=== PATIENT | male | born 1930 | race Caucasian/White ===

== ENCOUNTER 2017-01-15 15:39 | Inpatient (IN) | payer MEDICARE, OTHER ==
[~2017-01-15] VITALS: Ht 185.4 cm; Wt 77.6 kg
--- NOTE | 2017-01-15 17:00 | NUR ---
RECEIVED FROM [facility] WITH AND DAUGHTER VIA PRIVATE CAR. DX: DEMENTIA WITH BEHAVIORS. HAS HAD INCREASED VERBAL AGGRESSION, AGITATION, AND CONFUSION. HAS HAD MEDICATION CHANGES WITH NO IMPROVEMENT. AMBULATES WITH A CANE. SENT HIS CANE HOME WITH DAUGHTER AND GAVE HIM A WALKER. HE IS AGITATED ABOUT BEING LEFT HERE. WILL MONITOR FOR CAHANGES. CONTINUE PLAN OF CARE.
[2017-01-15] MEDS ORDERED: ARICEPT5 MG PO (17:13)
[2017-01-15] MEDS ORDERED: KLONOPIN0.5 MG PO (17:14)
[2017-01-15] MEDS ORDERED: BAYER CHEWABLE81 MG PO (17:14)
[2017-01-15] MEDS ORDERED: CORDARONE200 MG PO (17:15)
[2017-01-15] MEDS ORDERED: KEFLEX250 MG PO (17:15)
[2017-01-15] MEDS ORDERED: HYDROCHLOROTH12.5 M1 PO (17:18)
[2017-01-15] MEDS ORDERED: NAMENDA10 MG PO (17:19)
[2017-01-15] MEDS ORDERED: PROSCAR5 MG PO (17:20)
[2017-01-15] MEDS ORDERED: NYSTATIN1 PWD TOPICAL (17:20)
[2017-01-15] MEDS ORDERED: SYNTHROID100 MCG PO (17:22)
[2017-01-15] MEDS ORDERED: SYNTHROID150 MCG PO (17:23)
[2017-01-15] MEDS ORDERED: ACETAMINOPHEN325 MG PO (17:24)
[2017-01-15] MEDS ORDERED: VITAMIN D31000 UNIT PO (17:25)
[2017-01-15 17:32] VITALS: BP 167/91
[2017-01-15 18:46] LABS: BASOPHILS 0.4 % (0-2); EOSINOPHILS 1.8 % (0-7); HEMATOCRIT 48.1 % (42.0-54.0); HEMOGLOBIN 15.7 g/dL (13.5-17.5); IMMATURE GRANULOCYTES 0.3 % (0-5); LYMPHOCYTES 27.8 % (15-50); MCHC 32.6 g/dL (31.0-37.0); MCV 91.8 fL (80.0-100.0); MEAN PLATELET VOLUME 9.6 fL (7.4-10.4); MONOCYTES 10.3 % (2-11); NEUTROPHILS 59.4 % (40-80); PLATELET COUNT 203 10x3/uL (130-400); RBC 5.24 10x6/uL (4.20-6.10); RDW 14.9 % (11.5-14.5); WBC 9.6 10x3/uL (4.8-10.8)
[2017-01-15 19:06] LABS: HEMOGLOBIN A1C 5.7 % (4.8-6.0)
[2017-01-15 19:20] LABS: ALBUMIN 3.3 g/dL (3.4-5.0); ANION GAP 11.4 mmol/L (8-16); BILIRUBIN - TOTAL 0.48 mg/dL (0.2-1.3); CALCIUM 8.1 mg/dL (8.5-10.1); CARBON DIOXIDE 28.9 mmol/L (21.0-32.0); CHOL - HDL RATIO 3.2 ratio (2.3-4.9); CREATININE - SERUM 1.7 mg/dL (0.6-1.3); LDL-HDL RATIO 1.9 ratio (1.5-3.5); POTASSIUM - SERUM 4.3 mmol/L (3.5-5.1); PROTEIN - SERUM 6.8 g/dL (6.4-8.2); THYROID STIMULATING HORMONE 3.22 uIU/mL (0.36-3.74)
[2017-01-15 19:45] VITALS: BP 156/86
--- NOTE | 2017-01-16 01:19 | NUR ---
RECEIVED IN BEDROOM. LAYING IN BED EYES OPEN. CALM AND COOPERATIVE WITH CARE AND ASSESSMENTS. MILD AGITATION RELATED TO HAVING TO STAY AT LONG-TERM. REDIRECTED AND REORIENTED. RESTING EYES CLOSED AT THIS TIME. CONTINUE PLAN OF CARE
[2017-01-16 05:38] VITALS: BMI 29.0
[2017-01-16 07:57] VITALS: BP 143/80
--- NOTE | 2017-01-16 10:35 | NUR ---
PT CONFUSED TO SITUATION/PLACE. PT COMPLIANT WITH MEDICATIONS. PT THREATENING TO HURT HIS AT THIS TIME. REORIENTED TO PLACE AND SITUATION. [facility].
[2017-01-16 13:06] VITALS: BMI 29.0
--- NOTE | 2017-01-16 16:18 | NUR ---
SW WAS DISCUSSING CARE WITH PT AND HE STATED HE WANTED SW TO RELAY A MESSAGE TO . HE REPORTED IF SHE DOESN'T COME AND PICK HIM UP HE IS GOING TO KILL HER AND HIMSELF. SW REDIRECTED AND DE ESCALATED PT.
[2017-01-16 19:26] VITALS: BP 140/80
--- NOTE | 2017-01-16 20:10 | NUR ---
RECEIVED IN DINING AREA. WALKING ABOUT. WANTING TO GO TO BED. ASSIST TO BEDROOM AND GIVE PM MEDS. CONFUSED, CALM AND COOPERATIVE WITH CARE AND ASSESSMENTS. NO SIGNS OF AGGRESSION. SITTING ON BEDSIDE. CONTINUE PLAN OF CARE
[2017-01-17 07:26] LABS: RAPID PLASMA REAGIN Non Reactive (Non Reactive); VITAMIN D 25 HYDROXY 29.1 ng/mL (30.0-100.0)
[2017-01-17 08:35] VITALS: BP 127/74
[2017-01-17 09:33] VITALS: Ht 185.4 cm; Wt 77.6 kg
--- NOTE | 2017-01-17 12:35 | PSY ---
PATIENT NAME:EARLENE DANIEL MEDICAL RECORD: [id number] : [birth year] LOCATION:[facility] ADMISSION DATE: 01/15/17 ACCOUNT: [id number] PSYCHIATRIC EVALUATION DATE OF EVALUATION: 01/16/17 Psychiatric Evaluation IDENTIFYING DATA: The patient is 86 years old and he is admitted to the hospital on a voluntary basis. CHIEF COMPLAINT: Agitation. HISTORY OF PRESENT ILLNESS: The patient apparently is living at the [facility]. He has a known history of dementia. There were some medication changes that were made recently and since then, he has had a worsening of his confusion and behavior. It is not clear if that was related to the changes in the medication, it just simply time to it. At any rate, he has no short term memory. He has been very restless and verbally aggressive and threatening toward his family and caregivers. The patient emphatically denies this and will not cooperate with me fully. He keeps telling me his address and that I need to get a hold of his to come and get him. When it is explained that he is in the hospital to be evaluated for memory loss and that the evaluation is incomplete, he is fine and accepts it, but then the very next question causes him to go back to where he was before, asking that someone call his to come and get him. After multiple rounds of explaining the situation and accepting it, and then immediately forgetting and asking me to call his , frankly, it was just not feasible to get any useful information from him. Records indicate, as I mentioned, that he was quite agitated. PAST MEDICAL HISTORY: The patient does have a history of hypothyroidism and hypertension. He also has a history of cardiac arrhythmia and benign prostatic hypertrophy. PAST PSYCHIATRIC HISTORY: Significant for the history of dementia. It is unknown as to whether or not he has a history of substance abuse. ALLERGIES: DULCE MARIA INHIBITORS, PENICILLIN AND SULFUR. CURRENT MEDICATIONS: Include Proscar, Keflex, Cordarone, Synthroid, vitamin D and hydrochlorothiazide. SOCIAL HISTORY: The patient is and has adult children who are involved with his care. 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 MENTAL STATUS EXAMINATION: The patient is awake, alert and oriented to person, place and somewhat to time and situation. His mood is flat. His affect is constricted. Thought processes are circumstantial. Memory, concentration and abstraction abilities are moderately impaired and he denies any active intent to harm himself or others as well as overt psychotic symptoms. ASSETS: Supportive family members. LIABILITIES: Limited insight. DIAGNOSTIC IMPRESSION: AXIS I: Senile dementia of the Alzheimer's type with behavioral disturbances. AXIS II: None. AXIS III: Hypertension, hypothyroidism, cardiac arrhythmia and benign prostatic hypertrophy. AXIS IV: Moderate stressors. AXIS V: Global assessment of functioning is 30. PLAN: At this time, the patient is admitted to the hospital for a comprehensive medical, psychological and social evaluation. He will be treated with both mood stabilizing and memory enhancing medications. His long-term prognosis is guarded. TRANSINT:[id number] Voice Confirmation ID: [id number] DOCUMENT ID: [id number] BRANDI REYES MD at 1235 CC: [id number] DICTATION DATE: 01/16/17 1412 ACCOUNTANCY PROFESSOR: 01/16/17 1547 [facility] [address] [place] [address]
--- NOTE | 2017-01-17 17:41 | NUR ---
B) Alert, exit-seeking, angry, agitated, med compliant, re-directs well. I) Meds admin per orders. Group therapy provided. R) Deric meds well with no s/s adverse reaction. No aggression noted. P) Cont plan of care including meds and group therapy.
[2017-01-17 19:30] VITALS: BP 128/81
--- NOTE | 2017-01-18 00:40 | NUR ---
B) Patient alert and oriented to self and being in a hospital, restless, demanding and wanting to leave, R) Administered scheduled medications, redirected as needed, monitored for safety, R) Medication compliant, verbally aggressive P) Continue plan of care.
[2017-01-18 08:48] VITALS: BP 121/83
[2017-01-18 08:52] VITALS: BP 131/76
--- NOTE | 2017-01-18 10:26 | PN ---
PATIENT:EARLENE DANIEL MEDICAL RECORD: [id number] LOCATION:[facility] ADMISSION DATE: 01/15/17 PROGRESS NOTE DATE OF SERVICE: 01/17/2017 SUBJECTIVE: The patient states "let's get out of here." OBJECTIVE: The patient continues to be restless and anxious. He has been somewhat difficult to redirect. Yesterday, he made threats against his . He has not made similar threats today, but continues to be irritable and exhibits some brittle affect. On exam, mood is indeed irritable and somewhat angry. Affect is shallow and brittle. Speech is overly loud. Content of thought is positive for expressions of hostility toward staff members. Sensorium is unchanged. ASSESSMENT: Alzheimer dementia with behavioral disturbance. PLAN: 1. We will advance Aricept to 10 mg h.s. 2. Add Seroquel 50 mg b.i.d. 3. Continue other medications and supportive therapy. TRANSINT:[id number] Voice Confirmation ID: [id number] DOCUMENT ID: [id number] AGUSTÍN KENT III, MD at 1026 CC: [id number] DICTATION DATE: 01/17/17 1058 APPLE PICKING SUPERVISOR: 01/17/17 1334 ADM IN [facility] [address] [place] [address]
--- NOTE | 2017-01-18 14:00 | NUR ---
AWAKE AND ORIENTED TO SELF AND NAME OF HOSPITAL. HE KEEPS MAKING REMARKS, "I HAVE GOT TO GET OUT OF THIS PLACE.", THREATENING COMMENTS TOWARDS HIS . CALM AND COOPERATIVE WITH CARE AND ASSESSMENT. AMBULATES WITH WALKER. HE CONTINUES TO BE VERBALLY AGGRESSIVE WITH STAFF, AND DEMANDING WHAT HE WANTS. ADMINISTERED PRESCRIBED MEDICATIONS. COMPLIANT WITH MEDS. REDIRECT AND REORIENT NEEDED. FALL PRECAUTIONS MAINTAINED. CONTINUE PLAN OF CARE.
--- NOTE | 2017-01-18 14:33 | NUR ---
PT WAS SITTING IN THE DINING ROOM AND STATED SW NEEDED TO CALL HIS AND TELL HER IF HE DOESN'T GET OUT BY HER PICKING HIM UP HE WILL KILL HER AND HIMSELF. SW REPORTED TO PT'S , JELLY, WHEN SHE CALLED FOR AN UPDATE. SHE STATED SHE WOULD NOT COME DUE TO HIS STATEMENT. SW STATED THAT WAS PROBABLY FOR THE BEST. TRINITY DE [facility] UPDATED DTR ON PT'S BEHAVIORS AND MEDICATION REGIMEN.
--- NOTE | 2017-01-18 17:00 | NUR ---
PATIENT IS GETTING MORE AGITATED AND UPSET ABOUT BEING IN THIS PLACE. HAS BEEN EXIT-SEEKING TO GET OUT OF HERE.
[2017-01-18 19:23] VITALS: BP 133/77
--- NOTE | 2017-01-19 00:59 | NUR ---
B) Patient alert and oriented to self, restless and wanting to go home, very confused and impatient, I) Administerd scheduled medications, monitored for falls and safety, R) Medication compliant, resting quietly now, P) Continue plan of care.
--- NOTE | 2017-01-19 07:34 | NUR ---
B) PATIENT IS AWAKE AND ALERT, HE HAS BEEN AMBULATING INDEPENDENTLY, BUT HE IS SITTING AT THE DESK AND HE IS SLEEPING IN HIS CHAIR. WHEN ASKED WHAT HIS NAME IS, HE SAYS "DR. DANIEL" PATIENT KNOWS HIS NAME AND THE PLACE. HE IS NOT AWARE OF THE SITUATION THAT BROUGHT HIM HERE. I) PROVIDE PRESCRIBED MEDS. R) PATIENT IS CALM AND HAS NOT SHOWN ANY AGGRESSION THIS AM. P) CONTINUE POC.
[2017-01-19 08:13] VITALS: BP 153/77
[2017-01-19 20:44] VITALS: BP 136/74
--- NOTE | 2017-01-20 01:43 | NUR ---
B) Patient alert and oriented to self, wanting to go home, restless and exit seeking, I) Administered schduled medications, redirected as needed, R) Medication compliant, P) Continue plan of care.
[2017-01-20 08:07] VITALS: BP 409/60
--- NOTE | 2017-01-20 08:29 | PN ---
PATIENT:EARLENE DANIEL MEDICAL RECORD: [id number] LOCATION:[facility] ADMISSION DATE: 01/15/17 PROGRESS NOTE DATE OF SERVICE: 01/19/2017 SUBJECTIVE: The patient's case was discussed with staff. He has no new complaint. OBJECTIVE: The patient has very poor insight about his situation. He is tolerating his medicines well. Eye contact is poor. ASSESSMENT: No change in diagnoses. PLAN: Brief supportive and educational interventions were made. Alf prognosis is guarded. TRANSINT:[id number] Voice Confirmation ID: [id number] DOCUMENT ID: [id number] BRANDI REYES MD at 0829 CC: [id number] DICTATION DATE: 01/19/171709 SANFORIZING MACHINE OPERATOR: 01/19/178 ADM IN [place] [address] [place] [address]
--- NOTE | 2017-01-20 11:42 | NUR ---
B) PATIENT IS CONFUSED, HE ASKS THE SAME QUESTION OVER AND OVER, HE HAS ASKED STAFF TO CALL HIS TO PICK HIM UP. PATIENT AMBULATES INDEPENDENTLY. I) PROVIDE PRESCRIBED MEDS. R) PATIENT IS COMPLIANT WITH MEDS. P) CONTINUE POC.
--- NOTE | 2017-01-20 15:30 | NUR ---
PATIENT IS THREATENING TO DIVORCE HIS IF SHE DOESN'T COME UP HERE TO PICK HIM UP. PATIENT'S DAUGHTER SAID SHE WAS COMING TO VISIT TODAY, BUT SHE WOULD KEEP MOTHER AWAY SINCE HE IS MAKING THREATS.
--- NOTE | 2017-01-20 15:31 | NUR ---
PATIENT'S DAUGHTER WONDERS IF THE PATIENT MAY NEED AN ANTIDEPRESSANT SINCE HE WAS TAKEN OFF OF WELLBUTRIN ABRUPTLY. SHE FEELS HE MAY BE GOING THROUGH A DRUG WITHDRAWAL. LET HER KNOW WE WILL SHARE HER CONCERNS WITH THE PHYSICIANS.
[2017-01-20 19:00] VITALS: BP 130/74
--- NOTE | 2017-01-21 02:06 | NUR ---
B) Patient alert and oriented to self, patient said if he ever gets out of here he is not coming back, impatient and restless at times, poor short term memory, I) Administered schduled medications, redirected as needed, R) Medication compliant, easy to redirect, P) Continue plan of care.
[2017-01-21 07:00] VITALS: BP 147/82
--- NOTE | 2017-01-21 12:30 | NUR ---
B) PATIENT IS ALERT AND AWAKE, BUT CONFUSED REASON FOR BEING HERE AND DATE. HE IS AMBULATORY WITH WALKER. HE REPEATS STATEMENTS CONSTANTLY, ASKING TO CALL HIS NUMEROUS TIMES. NO AGGRESION NOTED. I) ADMINISTERED PRESCRIBED MEDICATIONS. VSS. R) COMPLIANT WITH MEDICATIONS AND UNIT MILIEU. REORIENT AND REDIRECT PRN. P) MAINTAIN FALL PRECAUTIONS AND CONTINUE PLAN OF CARE.
[2017-01-21 19:30] VITALS: BP 135/57
--- NOTE | 2017-01-21 20:27 | NUR ---
RECEIVED IN BEDROOM. VERY NEGATIVE THIS PM. STATED THAT HE WOULD JUST LIKE TO GO TO SLEEP AND JUST NOT WAKE UP. CALM AND COOPERATIVE WITH CARE AND ASSESSMENTS. REDIRECT AND REORIENT. ENCOURAGE TO EXPRESS NEEDS AND FEELINGS. RESTING EYES CLOSED AT THIS TIME. CONITNUE PLAN OF CARE
[2017-01-22 07:00] VITALS: BP 152/84
--- NOTE | 2017-01-22 10:23 | PN ---
PATIENT:EARLENE DANIEL MEDICAL RECORD: [id number] LOCATION:[facility] ADMISSION DATE: 01/15/17 PROGRESS NOTE DATE OF SERVICE: 01/18/2017 SUBJECTIVE: "I'm leaving." OBJECTIVE: The patient continues to have episodes of agitation and aggressiveness. He again has made threats against his . He frequently exit seeks and has to be redirected. On exam, mood is angry and irritable. Affect is very brittle. Speech is terse and overly loud. Content of thought as noted above. Sensorium unchanged. ASSESSMENT: No change in diagnosis. PLAN: 1. Adjust medications as indicated. 2. Continue supportive therapy. TRANSINT:[id number] Voice Confirmation ID: [id number] DOCUMENT ID: [id number] AGUSTÍN KENT III, MD at 1023 CC: [id number] DICTATION DATE: 01/18/17 112 CDL SERVICE TECHNICIAN: 01/18/17 1335 ADM IN [place] [id number] [place] [id number]
--- NOTE | 2017-01-22 13:31 | PN ---
PATIENT:EARLENE DANIEL MEDICAL RECORD: [id number] LOCATION:[facility] ADMISSION DATE: 01/15/17 PROGRESS NOTE DATE OF SERVICE: 01/20/2017 SUBJECTIVE: The patient's case was discussed with staff. He has no new complaint. OBJECTIVE: The patient has no active thoughts of harming himself or others. He is in good behavioral control, although he has been somewhat irritated at times. ASSESSMENT: No change in diagnosis. PLAN: Current medicines and therapies have been reviewed and will be maintained. Long-term prognosis is guarded. TRANSINT:[id number] Voice Confirmation ID: [id number] DOCUMENT ID: [id number] BRANDI REYES MD at 1331 CC: [id number] DICTATION DATE: 01/20/17 0839 ORIENTATION AND MOBILITY INSTRUCTOR: 01/20/17 1627 ADM IN [place] [id number] [place] [id number]
--- NOTE | 2017-01-22 14:00 | NUR ---
PATIENT IS ALERT THIS AM. ADMINISTERED PRESCRIBED MEDICATIONS. COMPLIANT WITH TAKING MEDS. ASSESSMENT COMPLETED. CONTINUE PLAN OF CARE.
[2017-01-22 20:00] VITALS: BP 131/64; BP 151/82
--- NOTE | 2017-01-22 22:48 | NUR ---
RECEIVED IN BEDROOM. RESTING WITH EYES OPEN. VERY CONFUSED. CALM AND COOPERATIVE WITH CARE AND ASSESSMENTS. NO SIGNS OF AGGRESSION. RESTING IN BED EYES CLOSED. CONTINUE PLAN OF CARE
[2017-01-23 07:00] VITALS: BP 156/82
--- NOTE | 2017-01-23 13:20 | NUR ---
Nutrition Monitoring and Eval: Chart reviewed. Pt is eating 92% meal avg on a regular diet. Meds and labs reviewed. Pt continues at low nutritional risk. RD following.
--- NOTE | 2017-01-23 13:58 | NUR ---
PATIENT IS PLEASANT. TOOK ALL MEDICATION WITHOUT DIFFICULTY. VISITING WITH OTHER RESIDENTS.
[2017-01-23 19:15] VITALS: BP 127/67
--- NOTE | 2017-01-23 19:34 | NUR ---
RECEIVED IN HALLWAY OUTSIDE OF DINING AREA. WALKING TO DDORS WANTING TO GO TO BED. VERY CONFUSES. CALM AND COOPERATIVE WITH CARE AND ASSESSMENTS. REDIRECT AND REORIENT NEEDED. RESTING IN CHAIR AT THIS TIME. CONTINUE PLAN OF CARE
[2017-01-24 08:00] VITALS: BP 131/76
--- NOTE | 2017-01-24 08:28 | NUR ---
PT ALERT EATING BREAKFAST. AM MEDS ADMINISTERED. PT TOOK MEDS WITHOUT DIFFICULTY. PT DENEIS NEEDS. WCTM.
--- NOTE | 2017-01-24 10:05 | PN ---
PATIENT:EARLENE DANIEL MEDICAL RECORD: [id number] LOCATION:[facility] ADMISSION DATE: 01/15/17 PROGRESS NOTE DATE OF SERVICE: 01/23/2017 SUBJECTIVE: No new complaint. OBJECTIVE: The patient is overall better. He is tolerating medications without difficulty. It appears he will be stable enough for transfer back to [facility] in a couple of days. On exam, mood is more or less euthymic. Affect rather reserved. Speech is somewhat terse. Content of thought is negative for overt psychosis. Sensorium unchanged. ASSESSMENT: No change in diagnosis. PLAN: 1. Continue current treatment plan. 2. Anticipate discharge in a couple of days. TRANSINT:[id number] Voice Confirmation ID: [id number] DOCUMENT ID: [id number] AGUSTÍN KENT III, MD at 1005 CC: [id number] DICTATION DATE: 01/23/17 1306 PATIENT ASSESSMENT COORDINATOR: 01/23/17 1617 ADM IN [place] [id number] [place] [id number]
[2017-01-24] MEDS ORDERED: LEXAPRO10 MG PO (11:17)
[2017-01-24] MEDS ORDERED: ARICEPT10 MG PO (11:17)
[2017-01-24] MEDS ORDERED: SEROQUEL25 MG PO (11:18)
[2017-01-24] MEDS ORDERED: VITAMIN B-121000 MCG PO (11:19)
[2017-01-24] MEDS ORDERED: VITAMIN D5000 UNIT PO (11:19)
--- NOTE | 2017-01-24 19:06 | NUR ---
RECEIVED IN DAYROOM. SITTING IN A RECLINER. SOCIALIZING WITH STAFF AND PEERS AT TIMES. CONFUSED. CALM AND COOPERATIVE WITH CARE AND ASSESSMENTS. NO SIGNS OF AGGRESSION. REDIRECT AND REORIENT NEEDED. CONTINUE PLAN OF CARE
[2017-01-24 20:18] VITALS: BP 215/111
--- NOTE | 2017-01-25 04:34 | PN ---
PATIENT:EARLENE DANIEL MEDICAL RECORD: [id number] LOCATION:[facility] ADMISSION DATE: 01/15/17 PROGRESS NOTE DATE OF SERVICE: 01/24/2017 SUBJECTIVE: No new complaint. OBJECTIVE: The patient has continued to tolerate medications well. We do have plans for discharge tomorrow. On exam, mood is slightly anxious. Affect remains shallow. Speech is terse. Content of thought shows no overt psychosis. Sensorium is unchanged. ASSESSMENT: No change in diagnosis. PLAN: 1. Continue current medications. 1. Anticipate discharge tomorrow. TRANSINT:[id number] Voice Confirmation ID: [id number] DOCUMENT ID: [id number] AGUSTÍN KENT III, MD at 0434 CC: [id number] DICTATION DATE: 01/24/17 1136 LEASE PURCHASE TRUCK DRIVER: 01/24/17 1735 ADM IN [place] [id number] [place] [id number]
--- NOTE | 2017-01-25 07:24 | NUR ---
PATIENT IS AWAKE AND ALERT, HE IS CALM, BUT HE HAS CONFUSION, HE KNOWS HIS NAME, BUT NOT PLACE OR TIME. PATIENT AMBULATES WITH A WALKER. I) PROVIDE PRESCRIBED MEDS, REDIRECT NEEDED. R) PATIENT IS COMPLIANT WITH MEDS AND UNIT MILIEU. P) CONTINUE POC.
[2017-01-25 08:00] VITALS: BP 146/95
--- NOTE | 2017-01-25 11:53 | NUR ---
CALLED REPORT TO STEFFANY, CALLED SEROBRI TO [facility] AND REQUESTED DELIVERY TO [facility].
--- NOTE | 2017-01-25 12:30 | NUR ---
PATIENT HAS D/C'D TO [facility], THEIR SLUMBER ROOM ATTENDANT CAME TO PICK HIM UP. ALL BELONGINGS AND PAPERWORK PROVIDED TO SLUMBER ROOM ATTENDANT.
--- NOTE | 2017-01-25 14:55 | NUR ---
PATIENT HAS BEEN D/C'D FROM THE HOSPITAL, BUT JANA IRVIN WANTED THIS NURSE TO CALL HER AND LET HER KNOW THE OFFICIAL DIAGNOSIS AND THE DISCHARGE MEDS. DID RELAY INFORMATION TO PATIENT'S DAUGHTER, SHE SAID SHE AND HER MOTHER ARE VERY THANKFUL FOR LONGTERM STAFF AND ALL THEY DID FOR THEM. SHE ASKED ME TO LET EVERYONE KNOW THEIR APPRECIATION.
--- NOTE | 2017-01-26 05:41 | DS ---
PATIENT:EARLENE DANIEL :[birth year] MEDICAL RECORD: [id number] DISCHARGE SUMMARY ADMISSION DATE: 01/15/17 DISCHARGE DATE: 01/25/17 DATE OF ADMISSION: 01/15/2017 DATE OF DISCHARGE: 01/25/2017 HISTORY OF PRESENT ILLNESS: An 86-year-old white male, who is a resident of [facility]. The patient has a previous history of Alzheimer dementia. The patient had been exhibiting worsening confusion and aggressive behavior. He had been threatening towards both family and care givers. He required a great deal of redirection at the time of admission. For further details, please see previously dictated history. COURSE IN THE HOSPITAL: The patient was seen in consultation by Dr. Marin. Dr. Marin noted the presence of hypertension, severe hearing deficit, hyperlipidemia, cardiac arrhythmias, history of benign prostatic hyperplasia and hypothyroidism. From a medication standpoint, the patient was treated conservatively with Lexapro 10 mg daily and Seroquel 75 mg b.i.d. Initially, the patient was very resistant to care, constantly attempted to elope. However, as the hospitalization progressed, he became much more attractable. The patient did exhibit dysphoria, especially when his visited. Otherwise, the patient was maintained on Synthroid 150 mcg Sunday and Sunday, vitamin B12 and vitamin D supplements, Aricept 10 mg h.s., hydrochlorothiazide 12.5 mg Sunday, Sunday and Sunday, Cordarone 100 mg daily, and Synthroid 100 mcg on Sunday, Sunday, Sunday and . Also, Namenda 10 mg twice a day and Proscar 5 mg h.s. Over course of hospitalization, the patient as mentioned did show gradual improvement. He was discharged back to [facility] in stable condition. FINAL DIAGNOSES: AXIS I: Alzheimer dementia with behavioral disturbance. AXIS II: No diagnosis. AXIS III: Hypertension, hypothyroidism, cardiac arrhythmias, benign prostatic hyperplasia. AXIS IV: Moderate. AXIS V: 36. PLAN: 1. The patient is discharged on current medications. 2. Diet and activities as tolerated. 3. Follow up with primary care physician through the [facility]. TRANSINT:[id number] Voice Confirmation ID: [id number] DOCUMENT ID: [id number] AGUSTÍN KENT III, MD at 0541 CC: [id number] DICTATION DATE: 01/25/17 1232 LOTUS NOTES DEVELOPER: 01/26/17 0252 DIS IN 01/25/17 [facility] [address] [place] [id number]
== END 2017-01-25 13:00 | disposition home or self-care (01) | DRG 57 ==
LOC: D.PSYCH 15:39
PROVIDERS: ADMIT Psychiatry & Neurology Psychiatry
DX: G30.9 Alzheimer's disease, unspecified (principal); F02.81 Dementia in other diseases classified elsewhere, unspecified severity, with behavioral disturbance; I10 Essential (primary) hypertension; E03.9 Hypothyroidism, unspecified; N40.0 Benign prostatic hyperplasia without lower urinary tract symptoms; E78.5 Hyperlipidemia, unspecified; I25.10 Atherosclerotic heart disease of native coronary artery without angina pectoris; Z95.5 Presence of coronary angioplasty implant and graft; R26.9 Unspecified abnormalities of gait and mobility; Z91.81 History of falling; E53.8 Deficiency of other specified B group vitamins; E55.9 Vitamin D deficiency, unspecified

== ENCOUNTER 2017-08-03 12:37 | Inpatient (IN) | payer MEDICARE, OTHER ==
[~2017-08-03] VITALS: Ht 185.4 cm; Wt 92.5 kg
--- NOTE | ~2017-08-03 | DS ---
PATIENT:EARLENE DANIEL :[birth year] MEDICAL RECORD: [id number] DISCHARGE SUMMARY ADMISSION DATE: 08/03/17 DISCHARGE DATE: 08/05/17 DATE OF ADMISSION: 08/03/2017. DATE OF DISCHARGE: 08/05/2017. The patient was admitted with reported syncopal event from [facility]. HOSPITAL COURSE: The patient was admitted to the ER. No signs of syncope, no injury. No falls. He was persistently bradycardic and found to have urinary tract infection, started on empiric antibiotics. Cardiology consulted. Echocardiogram obtained showed ejection fraction 40% to 45%. The patient is alert to person. He is in no acute distress. He declines any further intervention. He wants to be left alone. I had a long discussion with his and daughters. All are in agreement with discharge with hospice. We will continue antibiotics for the acute urinary tract infection. The patient is discharged back to [facility], which he considers home at this time with hospice, discharged in stable condition. Please see chart for further details. Lab results and cultures were obtained and all antibiotics changed to oral antibiotics for completion of therapy for the UTI. TRANSINT:[id number] Voice Confirmation ID: [id number] DOCUMENT ID: [id number] HOANG SHEA DO at 1055 CC: [id number] DICTATION DATE: 08/05/17 1257 CONTRACT PARALEGAL: 08/06/17 0210 DIS IN 08/05/17 [place] [address] [place] [id number]
--- NOTE | ~2017-08-03 | CN ---
PATIENT NAME:EARLENE DANIEL MEDICAL RECORD: [id number] : [birth year] LOCATION:[facility].2126 ADMIT DATE: 08/03/17 ACCOUNT: [id number] CONSULTING PHYSICIAN: ARIELLA THOMAS MD REFERRING PHYSICIAN: HOANG SHEA DO DATE OF CONSULTATION: 08/04/2017 HISTORY OF PRESENT ILLNESS: An 87-year-old gentleman with history of atrial fibrillation, well controlled on very low dose amiodarone 100 mg every day, had an apparent syncopal spell/fall, somewhat of a poor historian. reports he has had more falls as of late. He was found to have urinary tract infection. He is pleasantly demented. History is a little hard to obtain, also noted to have urinary tract infection. PAST MEDICAL HISTORY: Includes: 1. History of dementia. 2. Atrial fibrillation. 3. Dyslipidemia. 4. Hypothyroidism, on replacement. MEDICATIONS: Typically include Synthroid 100 mcg every day, HCTZ 25 every day, Namenda 10 mg b.i.d., Seroquel 75 b.i.d., Lexapro 10 every day, aspirin 81 every day, amiodarone 100 every day, benazepril 10 every day. SOCIAL HISTORY: Lives in [facility]. He is a nonsmoker, has had more of just a general downward physical course as of late. REVIEW OF SYSTEMS: Unobtainable. ALLERGIES: DULCE MARIA INHIBITOR, PENICILLIN, SULFA, STATINS. PHYSICAL EXAMINATION: GENERAL: Diminished gentleman in no acute distress. VITAL SIGNS: Pulse 57, blood pressure 147/74. HEENT: Normocephalic, atraumatic. NECK: No JVD or bruit. HEART: Regular. II/ systolic ejection murmur. LUNGS: Good air excursion. ABDOMEN: Soft, nontender. EXTREMITIES: Pulses 2+ with no edema. DIAGNOSTIC DATA: ECG shows normal sinus rhythm with minor nonspecific ST-T changes. IMPRESSION: Difficult to say if this is a true syncopal episode. At this point in time, we will check echocardiographic study. Continue to monitor as you are doing. Treat urinary tract infection. Further recommendations based on clinical course. TRANSINT:[id number] Voice Confirmation ID: [id number] DOCUMENT ID: [id number] CONSULT REPORT [id number] EARLENE DANIEL ARIELLA THOMAS MD at 0824 CC: [id number] DICTATION DATE: 08/04/17 1138 TICKER INSTALLER: 08/04/17 1301 DIS IN 08/05/17 [place] [id number] [place] [address]
--- NOTE | ~2017-08-03 | EC ---
PATIENT:EARLENE DANIEL DATE OF SERVICE: 08/03/17 SEX: M MEDICAL RECORD: [id number] DATE OF : [birth year] LOCATION:D.M2 D.212 AGE OF PATIENT: 87 ADMISSION DATE: 08/03/17 REFERRING PHYSICIAN: INTERPRETING PHYSICIAN: ARIELLA THOMAS MD ECHOCARDIOGRAM REPORT ECHO CHARGES 4 ECHO COMPLETE CLINICAL DIAGNOSIS: UNSTABLE ANGINA HX OF CAD/CABG ECHOCARDIOGRAPHIC MEASUREMENTS (adult normal given) AC root (d.<3.7cm) 4.4 cm LV Septum d (<1.2 cm> 1.4 cm Valve Excursion 2.2 cm LV Septum (systole) 1.7 cm Left Atria (s.<4.0cm> 4.3 cm LVPW d(<1.2cm) 1.5 cm RV (d.<2.3cm) 3.2 cm LVPW (sytole) 2.1 cm LV diastole(<5.6CM) 6.8 cm MV E-F(>70mm/sec) cm LV systole 4.6 cm LVOT Diameter 1.8 cm MV exc.(>10mm) 1.2 cm Est.ejection fraction (50-75%) % Pericardial Effusion N DOPPLER: LVIT cm/sec A 92.0 cm/sec E 54.0 cm/sec LA cm/sec RVSP 48 mmHg LVOT 121 cm/sec AOP1/2T 544 m/s Asc. Ao 159 cm/sec RVOT 137 cm/sec RA cm/sec PA 185 cm/sec AV Gradient Peak 10.08mmHg AV Mean 5.84 mmHg AV Area 2.0 cm MV Gradient Peak 5.01 mmHg MV Mean 1.51 mmHg MV Area cm COMMENTS: Machine Tool Operator: 2 JEAN DIAL Sander Machine: 3 Dr. Hand TAPE# PACS DATE OF SERVICE: 08/04/2017 Adequate 2D echo, color flow and spectral Doppler, and M-mode. LVH is present. LV internal dimensions are normal. LV is mildly globally hypo with reduced EF. Estimated EF of 40% to 45%. Aortic valve sclerosis without stenosis by Doppler interrogation. Mild AI by color flow imaging. Left atrium is mildly dilated at 4.3 cm. Mitral valve is thickened with mitral annular calcification, only mild MR. Right-sided chamber is normal. Mild TR. ECHOCARDIOGRAM REPORT [id number] EARLENE DANIEL TRANSINT:[id number] Voice Confirmation ID: [id number] DOCUMENT ID: [id number] ARIELLA THOMAS MD at 0824 CC: [id number] DICTATION DATE: 08/04/171419 CLOTH MENDER: 08/04/17 2323 DIS IN 08/05/17 [facility] [address] [place] [id number]
--- NOTE | ~2017-08-03 | EC ---
PATIENT:EARLENE DANIEL DATE OF SERVICE: 08/03/17 SEX: M MEDICAL RECORD: [id number] DATE OF : [birth year] LOCATION:D.M2 D.212 AGE OF PATIENT: 87 ADMISSION DATE: 08/03/17 REFERRING PHYSICIAN: INTERPRETING PHYSICIAN: PLACIDO REVELES MD ECHOCARDIOGRAM REPORT ECHO CHARGES 4 ECHO COMPLETE CLINICAL DIAGNOSIS: UNSTABLE ANGINA HX OF CAD/CABG ECHOCARDIOGRAPHIC MEASUREMENTS (adult normal given) AC root (d.<3.7cm) 4.4 cm LV Septum d (<1.2 cm> 1.4 cm Valve Excursion 2.2 cm LV Septum (systole) 1.7 cm Left Atria (s.<4.0cm> 4.3 cm LVPW d(<1.2cm) 1.5 cm RV (d.<2.3cm) 3.2 cm LVPW (sytole) 2.1 cm LV diastole(<5.6CM) 6.8 cm MV E-F(>70mm/sec) cm LV systole 4.6 cm LVOT Diameter 1.8 cm MV exc.(>10mm) 1.2 cm Est.ejection fraction (50-75%) % Pericardial Effusion N DOPPLER: LVIT cm/sec A 92.0 cm/sec E 54.0 cm/sec LA cm/sec RVSP 48 mmHg LVOT 121 cm/sec AOP1/2T 544 m/s Asc. Ao 159 cm/sec RVOT 137 cm/sec RA cm/sec PA 185 cm/sec AV Gradient Peak 10.08mmHg AV Mean 5.84 mmHg AV Area 2.0 cm MV Gradient Peak 5.01 mmHg MV Mean 1.51 mmHg MV Area cm COMMENTS: Brim Pouncer Machine Operator: Manuel DIAL Swimming Pool Salesperson: 3 Dr. Hand TAPE# PACS DATE OF SERVICE: 08/06/2017 PROCEDURE: Transthoracic echocardiogram. FINDINGS: 1. Left ventricle shown to have left ventricular hypertrophy. There is a distal anterior apical area of dyskinesis and thinning with regional wall motion abnormalities. The basilar segments are more well preserved and actually hypertrophied and there is some dilatation of the left ventricle. The inflow characteristics are consistent with diastolic dysfunction. The overall ejection ECHOCARDIOGRAM REPORT [id number] EARLENE DANIEL fraction is 35% to 40%. 2. The aortic valve is thickened and sclerotic. There is no evidence of significant stenosis. There is evidence of trace to mild aortic insufficiency. 3. The mitral valve has mild mitral regurgitation, is not well visualized structurally. 4. The tricuspid valve has mild tricuspid regurgitation, RVSP of 48 mmHg. 5. The right ventricle is mildly dilated. 6. The right atrium is normal size, normal function. CONCLUSIONS: The patient does have evidence of ischemic cardiomyopathy, ejection fraction of approximately 35% to 40%. Inflow characteristics appear to be suggestive of diastolic dysfunction or elevated left ventricular end-diastolic pressures. TRANSINT:[id number] Voice Confirmation ID: [id number] DOCUMENT ID: [id number] PLACIDO REVELES MD at 1214 CC: [id number] DICTATION DATE: 08/06/17 1206 VELVET WEAVER: 08/06/17 1226 DIS IN 08/05/17 [facility] [address] [place] [address]
--- NOTE | ~2017-08-03 | HP ---
PATIENT: EARLENE DANIEL MEDICAL RECORD: [id number] ACCOUNT: [id number] LOCATION:[address] : [birth year] ADMISSION DATE: 08/03/17 HISTORY AND PHYSICAL EXAMINATION HISTORY OF PRESENT ILLNESS: An 87-year-old male reported had a syncopal event with no observed syncopal event with no injury earlier today and brought in to the Emergency Room. PAST MEDICAL HISTORY: Significant for dementia. Also, the patient is a very limited historian with his dementia. He denies any present symptoms. He is comfortable at supine position at rest. Again, past medical history is significant for dementia, arrhythmia. Depression, difficulties with incontinence of urine. CURRENT MEDICATIONS: Listed as, donepezil, amiodarone. ALLERGIES: LISTED DULCE MARIA INHIBITORS, PENICILLIN, SULFA, STATIN, ZETIA. PHYSICAL EXAMINATION: VITAL SIGNS: The patient is afebrile, blood pressure stable. Heart rate running in the low 40s to low 50s. HEENT: Head is normocephalic, atraumatic. Eyes: Pupils slightly pinpoint. Extraocular muscles are intact and answers appropriately. 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 Ears: Canals patent, TMs are intact. Nose: Nares patent. Throat: No erythema, no exudates. NECK: Supple. No lymphadenopathy. HEART: Bradycardic. LUNGS: Clear to auscultation bilaterally. Breathing is nonlabored. ABDOMEN: Soft, nontender. Bowel sounds all 4 quadrants. EXTREMITIES: Present times 4, no edema. NEUROLOGIC: No appreciable focal deficits other than memory deficits. LABORATORY DATA: Chest x-ray subtle patchy airspace disease, lateral left lung base, likely atelectasis, possible early infiltrate. Lactic acid 0.9. Urinalysis: Yellow, cloudy, concentrated, trace protein, 1+ blood, positive nitrites, 25-50 wbc's, many bacteria. CBC: White count 6.1, hemoglobin 13.9, hematocrit 43.5, platelets 221. Chemistry shows sodium of 140, potassium 3.9, chloride 105, bicarb 24.6, BUN 19, creatinine 1.8. Glucose 113, calcium 8, AST 12, ALT 11, alkaline phosphatase 70. CK 30, troponin less than 0.017. Albumin 2.9. TSH 0.85. Urine and blood cultures are pending. ASSESSMENT AND PLAN: 1. Syncopal episode. CT of the head reported as negative. 2. Bradycardia, obtain EKG and echocardiogram, cardiology consulted. 3. Urinary tract infection, culture urine. Empiric Rocephin 1 gram daily, HISTORY AND PHYSICAL [id number] EARLENE DANIEL monitor electrolytes and supportive care. 4. Dementia. Again supportive care. TRANSINT:[id number] Voice Confirmation ID: [id number] DOCUMENT ID: [id number] HOANG SHEA DO at 1158 CC: [id number] DICTATION DATE: 08/03/171812 AML ANALYST: 08/03/172012 ADM IN [facility] [address] [place] [address]
[~2017-08-03 12:37] MED LIST: ACETAMINOPHEN325 MG PO; ARICEPT10 MG PO; ARICEPT5 MG PO; BAYER CHEWABLE81 MG PO; CORDARONE200 MG PO; HYDROCHLOROTH12.5 M1 PO; KEFLEX250 MG PO; KLONOPIN0.5 MG PO; LEXAPRO10 MG PO; NAMENDA10 MG PO; NYSTATIN1 PWD TOPICAL; PROSCAR5 MG PO; SEROQUEL25 MG PO; SYNTHROID100 MCG PO; SYNTHROID150 MCG PO; VITAMIN B-121000 MCG PO; VITAMIN D31000 UNIT PO; VITAMIN D5000 UNIT PO
[2017-08-03 13:59] LABS: BASOPHILS 0.5 % (0-2); EOSINOPHILS 1.6 % (0-7); HEMATOCRIT 43.5 % (42.0-54.0); HEMOGLOBIN 13.9 g/dL (13.5-17.5); IMMATURE GRANULOCYTES 0.2 % (0-5); LYMPHOCYTES 21.7 % (15-50); MCH 29.3 pg (26.0-34.0); MCV 91.6 fL (80.0-100.0); MEAN PLATELET VOLUME 9.9 fL (7.4-10.4); MONOCYTES 9.2 % (2-11); NEUTROPHILS 66.8 % (40-80); PLATELET COUNT 221 10x3/uL (130-400); RBC 4.75 10x6/uL (4.20-6.10); RDW 14.7 % (11.5-14.5); WBC 6.1 10x3/uL (4.8-10.8)
[2017-08-03 14:21] LABS: ALBUMIN 2.9 g/dL (3.4-5.0); ALKALINE PHOSPHATASE 70 U/L (46-116); ALT (SGPT) 11 U/L (10-68); BILIRUBIN - TOTAL 0.44 mg/dL (0.2-1.3); CALC OSMOLALITY 281 mosm/kg (275-300); CARBON DIOXIDE 24.6 mmol/L (21.0-32.0); CHLORIDE - SERUM 105 mmol/L (98-107); CREATININE - SERUM 1.8 mg/dL (0.6-1.3); GLUCOSE 113 mg/dL (74-106); POTASSIUM - SERUM 3.9 mmol/L (3.5-5.1); PROTEIN - SERUM 6.6 g/dL (6.4-8.2); SODIUM 140 mmol/L (136-145); UREA NITROGEN 19 mg/dL (7-18); eGFR NON AFRICAN AMERICAN 38 mL/min (90-120)
[2017-08-03 14:31] LABS: CREATINE KINASE 30 UL (21-232); THYROID STIMULATING HORMONE 0.85 uIU/mL (0.36-3.74); TROPONIN-I < 0.017 ng/mL (0.000-0.060)
[2017-08-03 14:53] LABS: APPEARANCE CLOUDY (CLEAR); BILIRUBIN NEGATIVE (NEGATIVE); COLOR YELLOW (YELLOW); GLUCOSE NEGATIVE (NEGATIVE); KETONE NEGATIVE (NEGATIVE); NITRITE POSITIVE (NEGATIVE); PROTEIN TRACE mg/dL (NEGATIVE); SPECIFIC GRAVITY 1.025 (1.005-1.020); UROBILINOGEN NORMAL (NORMAL)
[2017-08-03 14:54] LABS: BACTERIA MANY /hpf (NONE SEEN); RED CELLS - URINE 0-5 /hpf (0-5); WHITE CELLS - URINE 25-50 /hpf (0-5)
[2017-08-03 19:00] VITALS: BP 142/67
[2017-08-04] VITALS (7 sets, daily range): BP systolic 105–158; BP diastolic 58–95; Ht 185.4 cm; Wt 92.5 kg
[2017-08-04] MEDS ORDERED: MUPIROCIN22 GM TOPICAL (03:37)
[2017-08-04] MEDS ORDERED: PREVIDENT56 GM TP (03:39)
[2017-08-04] MEDS ORDERED: SEROQUEL50 MG PO (03:40)
[2017-08-04 06:05] LABS: BASOPHILS 0.2 % (0-2); EOSINOPHILS 1.1 % (0-7); HEMATOCRIT 43.6 % (42.0-54.0); HEMOGLOBIN 13.9 g/dL (13.5-17.5); IMMATURE GRANULOCYTES 0.3 % (0-5); LYMPHOCYTES 15.4 % (15-50); MCH 29.1 pg (26.0-34.0); MCHC 31.9 g/dL (31.0-37.0); MCV 91.2 fL (80.0-100.0); MEAN PLATELET VOLUME 10.4 fL (7.4-10.4); MONOCYTES 9.7 % (2-11); NEUTROPHILS 73.3 % (40-80); PLATELET COUNT 261 10x3/uL (130-400); RBC 4.78 10x6/uL (4.20-6.10); RDW 14.8 % (11.5-14.5)
[2017-08-04 06:06] LABS: WBC 9.8 10x3/uL (4.8-10.8)
[2017-08-04 06:19] LABS: CALCIUM 7.5 mg/dL (8.5-10.1); CREATININE - SERUM 1.4 mg/dL (0.6-1.3); MAGNESIUM - SERUM 1.8 mg/dL (1.8-2.4); PHOSPHOROUS 2.8 mg/dL (2.5-4.9)
[2017-08-05 00:47] VITALS: BP 152/78
[2017-08-05 04:58] LABS: BASOPHILS 0.3 % (0-2); EOSINOPHILS 2.6 % (0-7); HEMOGLOBIN 12.8 g/dL (13.5-17.5); IMMATURE GRANULOCYTES 0.3 % (0-5); MCV 90.5 fL (80.0-100.0); MEAN PLATELET VOLUME 9.7 fL (7.4-10.4); MONOCYTES 12.1 % (2-11); NEUTROPHILS 55.7 % (40-80); RBC 4.42 10x6/uL (4.20-6.10); RDW 14.7 % (11.5-14.5)
[2017-08-05 05:00] LABS: PLATELET COUNT 203 10x3/uL (130-400); WBC 6.9 10x3/uL (4.8-10.8)
[2017-08-05 05:20] LABS: ANION GAP 12.5 mmol/L (8-16); CALCIUM 7.6 mg/dL (8.5-10.1); CARBON DIOXIDE 23.9 mmol/L (21.0-32.0); CREATININE - SERUM 1.3 mg/dL (0.6-1.3); POTASSIUM - SERUM 3.4 mmol/L (3.5-5.1)
[2017-08-05 06:44] VITALS: BP 156/81
[2017-08-05 08:11] VITALS: BP 164/89
[2017-08-05 11:26] VITALS: BP 155/85
[2017-08-05] MEDS ORDERED: FLORAJEN3 CAPS460 MG PO (12:49)
[2017-08-05] MEDS ORDERED: CEFUROXIME250 MG PO (12:51)
== END 2017-08-05 15:40 | disposition home health service (06) | DRG 690 ==
LOC: D.ER 12:37 → D.M2 16:34 → D.EDHOLD 16:34 → D.M2 16:52
PROVIDERS: Emergency Medicine; Family Medicine
DX: N39.0 Urinary tract infection, site not specified (principal); F03.90 Unspecified dementia, unspecified severity, without behavioral disturbance, psychotic disturbance, mood disturbance, and anxiety; E78.5 Hyperlipidemia, unspecified; E03.9 Hypothyroidism, unspecified; I48.91 Unspecified atrial fibrillation; R00.1 Bradycardia, unspecified

== ENCOUNTER 2017-10-10 18:51 | Emergency (ER) | payer MEDICARE, OTHER ==
[2017-08-04 03:56] VITALS: BMI 24.5
[~2017-10-10 18:51] MED LIST changes: +CEFUROXIME250 MG PO; +FLORAJEN3 CAPS460 MG PO; +MUPIROCIN22 GM TOPICAL; +PREVIDENT56 GM TP; +SEROQUEL50 MG PO
[2017-10-10 19:43] LABS: BASOPHILS 0.5 % (0-2); EOSINOPHILS 3.7 % (0-7); HEMATOCRIT 41.4 % (42.0-54.0); HEMOGLOBIN 13.5 g/dL (13.5-17.5); IMMATURE GRANULOCYTES 0.3 % (0-5); LYMPHOCYTES 34.9 % (15-50); MCH 29.2 pg (26.0-34.0); MCHC 32.6 g/dL (31.0-37.0); MCV 89.6 fL (80.0-100.0); MEAN PLATELET VOLUME 9.5 fL (7.4-10.4); MONOCYTES 8.9 % (2-11); NEUTROPHILS 51.7 % (40-80); PLATELET COUNT 202 10x3/uL (130-400); RBC 4.62 10x6/uL (4.20-6.10); RDW 16.1 % (11.5-14.5); WBC 7.7 10x3/uL (4.8-10.8)
[2017-10-10 19:56] LABS: ALBUMIN 2.8 g/dL (3.4-5.0); ANION GAP 12.5 mmol/L (8-16); BILIRUBIN - TOTAL 0.4 mg/dL (0.2-1.3); CALCIUM 8.1 mg/dL (8.5-10.1); CARBON DIOXIDE 25.6 mmol/L (21.0-32.0); CREATININE - SERUM 1.7 mg/dL (0.6-1.3); POTASSIUM - SERUM 4.1 mmol/L (3.5-5.1); PROTEIN - SERUM 6.6 g/dL (6.4-8.2)
[2017-10-10 20:35] LABS: APTT 27.7 SECONDS (22.8-39.4); INR 1.05 (0.85-1.17); PROTIME 13.3 SECONDS (11.6-15.0)
== END 2017-10-10 23:01 | disposition home or self-care (01) ==
LOC: D.ER 18:51
PROVIDERS: Family Medicine; Physician Assistant Medical
DX: R56.9 Unspecified convulsions (principal); Z87.828 Personal history of other (healed) physical injury and trauma; I10 Essential (primary) hypertension